=== PATIENT | female | born 1980 | race African-American/Black ===

== ENCOUNTER 2017-11-25 10:00 | Emergency (ER) | payer SELFPAY ==
[~2017-11-25] VITALS: Ht 165.1 cm; Wt 72.6 kg
[2017-11-25 10:08] VITALS: BP 149/82
[2017-11-25] MEDS ORDERED: cefTRIAXone SOD 1,000 MG VL IM ONE (15:45)
[2017-11-25] MEDS ORDERED: LIDOCAINE 1% (LOCAL ANESTH.) PF 5ml SDV ONE (15:45)
== END 2017-11-25 16:38 | disposition home or self-care (01) ==
LOC: ER 10:00
DX: J03.90 Acute tonsillitis, unspecified (principal); J45.909 Unspecified asthma, uncomplicated
CPT/HCPCS: 70490; 96372; 99284; J0696